=== PATIENT | male | born 1960 | race Caucasian/White ===

== ENCOUNTER 2025-11-04 09:05 | Outpatient (CLI) | payer OTHER | END 2025-11-04 09:06 | disposition home or self-care (01) | LOC: MADRAD 09:05 | PROVIDERS: ATTEND Chiropractor | DX: M19.90 Unspecified osteoarthritis, unspecified site (principal); M77.8 Other enthesopathies, not elsewhere classified; M19.011 Primary osteoarthritis, right shoulder; M16.12 Unilateral primary osteoarthritis, left hip ==